=== PATIENT | male | born 1965 | race Caucasian/White ===

== ENCOUNTER 2021-07-21 17:03 | Emergency (ER) | payer SELFPAY ==
[~2021-07-21] VITALS: Ht 180.3 cm; Wt 106.5 kg
[2021-07-21] MEDS ORDERED: TETANUS,DIPTH,PERTUSS P/F (BOOSTRIX) 0.5 ML VIAL IM ONE (17:15)
--- NOTE | 2021-07-21 17:15 | ED Lower Extremity ---
General Chief Complaint: Laceration Stated Complaint: L FOOT LAC Source: patient Exam Limitations: no limitations History of Present Illness Date Seen by Provider: Jul 21, 2021 Time Seen by Provider: 17:10 Initial Comments 56-year-old male with no pertinent past medical history coming in after he was swinging an ax in sandals outside try to clear some brush, missed, hit his left foot on the top of it. He says it was a nice new, clean ax. He went to an urgent care and then they referred him here. Last tetanus he believes is more than 10 years ago. He is having no pain at this time. He says bleeding is controlled. Allergies and Home Medications Allergies Coded Allergies: No Known Drug Allergies (Unverified , 07/21/21) Patient Home Medication List Home Medication List Reviewed: Yes Cephalexin (Cephalexin) 500 Mg Tablet, 500 MG PO QID Prescribed by: GELY SINGH on 07/21/21 7614 Review of Systems Constitutional: No fever EENTM: No blurred vision Respiratory: no symptoms reported Cardiovascular: no symptoms reported Gastrointestinal: no symptoms reported Genitourinary: no symptoms reported Musculoskeletal: other (Laceration to left top of foot) Skin: no symptoms reported Psychiatric/Neurological: No Symptoms Reported All Other Systems Reviewed Negative Unless Noted: Yes Past Hirgzwq-Cjupag-Mnrvll Hx Patient Social History Tobacco Use?: No Substance use?: No Alcohol Use?: No Past Medical History Surgeries: No Physical Exam Vital Signs Vital Signs - First Documented 07/21/21 17:09 Temp 36.6 Pulse 93 Resp 14 B/P (MAP) 164/89 (114) Pulse Ox 96 O2 Delivery Room Air Capillary Refill : Height, Weight, BMI Height: '" Weight: lbs. oz. kg; BMI Method: General Appearance: WD/WN, no apparent distress HEENT: PERRL/EOMI, normal ENT inspection, pharynx normal Neck: non-tender, full range of motion, supple, normal inspection Cardiovascular: regular rate, rhythm, no edema, no murmur Respiratory: chest non-tender, lungs clear, normal breath sounds, no respiratory distress, no accessory muscle use Gastrointestinal: normal bowel sounds, non tender, soft; No distended, No guarding, No rebound Back: normal inspection, no CVA tenderness, no vertebral tenderness Feet: right foot non-tender, right foot normal inspection; bilateral foot normal range of motion; right foot no evidence of injury; left foot abrasions/lacerations (4 cm laceration to the dorsal aspect of the left foot just overlying the distal aspect of the first metatarsal, neurovascularly intact, there are no tendon seen in the fold of the wound, he has full strength with dorsiflexion and plantarflexion of the toes with no apparent lacerations of the tendons) Neurologic/Tendon: normal sensation, normal motor functions, normal tendon functions Neurologic/Psychiatric: no motor/sensory deficits, alert, normal mood/affect Skin: normal color, warm/dry Lymphatic: no adenopathy Procedures/Interventions Wound Location: Lower Extremities Other Wound Location dorsal aspect of left foot Wound Length (cm): 4 Wound's Depth, Shape: superficial Wound Explored: clean Irrigated w/ Saline (ccs): 400 Anesthesia: 1% Lidocaine Volume Anesthetic (ccs): 3 Suture: Ethlion Suture Size: 4-0 (single running suture performed) Other Closure Supply: Steri Strip 1/2", Mastisol Number of Sutures: 1 Sterile Dressing Applied?: Yes Progress Patient tolerated the procedure well with no complications Progress/Results/Core Measures Results/Orders My Orders Orders - GELY SINGH MD Dipht,Pertuss(Acell),Tet Adult (Boostrix (07/21/21 17:15) Foot 2 View Left (07/21/21 17:15) Medications Given in ED Current Medications Medications Dose Ordered Sig/Dori Route Start Time Stop Time Status Last Admin Dose Admin Diphtheria/ Tetanus/Acell Pertussis 0.5 ml ONCE ONCE IM 07/21/21 17:15 07/21/21 17:16 DC 07/21/21 17:25 0.5 ML Vital Signs/I&O 07/21/21 17:09 Temp 36.6 Pulse 93 Resp 14 B/P (MAP) 164/89 (114) Pulse Ox 96 O2 Delivery Room Air Progress Progress Note : Progress Note 56-year-old male with above history coming in after hitting his left foot with an ax. ABCs were intact and vitals were stable on presentation. Physical exam with me for centimeter laceration that was superficial. No apparent tendon, nerve, blood vessel involvement. X-ray negative for fracture. Tetanus updated today. It was cleaned and closed. I will tell them to take them out in the next 10 days. He was then discharged home in stable condition with strict return precautions Diagnostic Imaging Diagonstic Imaging: Xray (left foot) Comments [facility], [place] NAME: MIGUEL GONSALEZ [facility] REC#: [id number] PT STATUS: REG ER : 1965 PHYSICIAN: GELY ISNGH MD ADMIT DATE: 07/21/21/ER FS Draft Date of Exam:07/21/21 FOOT 2 VIEW LEFT INDICATION: Laceration to the dorsum of the left foot. TIME OF EXAM: 05:20 p.m. TECHNIQUE: Two views of the left foot were obtained. FINDINGS: Metatarsals are intact. Phalanges are intact. Midfoot and hindfoot are unremarkable apart from posterior and plantar calcaneal spurs. No fractures are seen. Soft tissues are unremarkable. IMPRESSION: No acute abnormality is detected. Dictated on workstation # [id number] Dict: 07/21/21 1727 Trans: 07/21/21 1730 AS6 [id number] Interpreted by: LEIF PORTER MD Electronically signed by: Departure Impression Primary Impression: Foot laceration Qualified Codes: S91.312A - Laceration without foreign body, left foot, initial encounter Disposition: 01 HOME, SELF-CARE Condition: Improved Departure-Patient Inst. Decision time for Depature: 17:39 Referrals: [facility] [place],LOCAL PHYSICIAN (PCP) Primary Care Physician Patient Instructions: Laceration Repair With Stitches ED Add. Discharge Instructions: The stitches need to come out in 10 days. You can come back here for free, or you can see your regular doctor. If redness start spreading of her leg, pus starts coming out, or you develop fever then I want you to be seen sooner. You will take antibiotics for the next week. Take ibuprofen and/or Tylenol as needed for pain. Do not let the stitches get wet for at least 2 days. After that water can run over them briefly, but do not scrub them or submerge them in bath water, mcmahon water, or any water. Scripts Cephalexin (Cephalexin) 500 Mg Tablet 500 MG PO QID for 7 Days, #28 TAB Prov: GELY SINGH MD 07/21/21 Work/School Note: Work Release Form Date Seen in the Emergency Department: Jul 21, 2021 Return to Work: Jul 22, 2021 Restrictions: No Restrictions GELY SINGH MD Jul 21, 2021 17:15
[2021-07-21] MEDS ORDERED: CEPH500T PO (17:24)
--- NOTE | 2021-07-21 17:31 | Diagnostic Imaging Report ---
INDICATION: Laceration to the dorsum of the left foot. TIME OF EXAM: 05:20 p.m. TECHNIQUE: Two views of the left foot were obtained. FINDINGS: Metatarsals are intact. Phalanges are intact. Midfoot and hindfoot are unremarkable apart from posterior and plantar calcaneal spurs. No fractures are seen. Soft tissues are unremarkable. IMPRESSION: No acute abnormality is detected. Dictated by: Dictated on workstation # [id number]
[2021-07-21 17:40] VITALS: BP 164/89
== END 2021-07-21 17:40 | disposition home or self-care (01) ==
LOC: ER FS 17:04
DX: S91.312A Laceration without foreign body, left foot, initial encounter (principal); Z23 Encounter for immunization; W22.8XXA Striking against or struck by other objects, initial encounter; Y93.11 Activity, swimming
CPT/HCPCS: 73620; 90715